=== PATIENT | male | born 1945 ===

== ENCOUNTER 2018-12-26 15:49 | Inpatient (IN) | payer MEDICARE, BC, MEDICAID ==
[~2018-12-26] VITALS: Ht 185.4 cm; Wt 96.4 kg
--- NOTE | 2018-12-26 16:07 | NUR ---
EKG 1601 LS
[2018-12-26] MEDS ORDERED: LORazepam 1 MG tablet PO ONE (17:10)
[2018-12-26 17:41] LABS: BASOPHILS % (AUTO) 0.5 % (0-1); EOSINOPHILS # (AUTO) 0.5 X10'3 (0-0.9); EOSINOPHILS % (AUTO) 5.8 % (0-6); HEMATOCRIT 38.7 % (42.0-52.0); HEMOGLOBIN 12.5 g/dl (14.0-17.9); LYMPHOCYTES # (AUTO) 1.1 X10'3 (1.1-4.8); LYMPHOCYTES % (AUTO) 14.1 % (21-51); MEAN CORPUSCULAR HGB CONC 32.4 g/dL (33.0-36.5); MEAN CORPUSCULAR VOLUME 92.7 FL (78-98); MEAN PLATELET VOLUME 8.2 FL (7.4-10.4); NEUTROPHILS # (AUTO) 5.4 X10'3 (1.8-7.7); NEUTROPHILS % (AUTO) 67.6 % (42-75); PLATELET COUNT 238 X10'3 (140-440); RED BLOOD COUNT 4.17 X10'6 (4.70-6.10); RED CELL DISTRIBUTION WIDTH 13.9 % (11.5-14.5)
[2018-12-26] MEDS ORDERED: haloperidol lactate 5mg/ml inj IM STA (17:54)
[2018-12-26] MEDS ORDERED: diphenhydrAMINE 50 mg/ml inj IM STA (17:54)
[2018-12-26] MEDS ORDERED: LORazepam 2 mg/ml vial IM STA (17:54)
[2018-12-26 17:58] LABS: ALANINE AMINOTRANSFERASE 23 U/L (12-78); ALBUMIN 2.7 G/DL (3.4-5.0); ALBUMIN/GLOBULIN RATIO 0.6 (1.1-1.5); ALKALINE PHOSPHATASE 119 IU/L (46-116); ANION GAP 8 (8-16); ASPARTATE AMINO TRANSFERASE 20 U/L (10-37); BILIRUBIN,TOTAL 0.4 MG/DL (0.1-1.0); BLOOD UREA NITROGEN 24 MG/DL (7-18); BUN/CREATININE RATIO 21.4 (5.4-32.0); CALCIUM 8.2 MG/DL (8.5-10.1); CHLORIDE 105 MMOL/L (99-107); CREATININE 1.12 MG/DL (0.60-1.10); GLUCOSE 104 MG/DL (70-104); POTASSIUM 3.9 MMOL/L (3.5-5.1); SODIUM 141 MMOL/L (135-145); TOTAL PROTEIN 7.1 G/DL (6.4-8.2); eGFR 64 ML/MIN
[2018-12-26 17:59] LABS: ETHANOL < 0.010 GM/DL (0.0-0.010)
[2018-12-26] MEDS ORDERED: HYDR-4383 PO (21:06)
[2018-12-26] MEDS ORDERED: MELA3TAB64 PO (21:06)
[2018-12-26] MEDS ORDERED: OMEP40CA13 PO (21:06)
[2018-12-26] MEDS ORDERED: POLY17PO10 PO (21:06)
[2018-12-26] MEDS ORDERED: MIRT15TA8 PO (21:06)
[2018-12-26 21:17] LABS: URINE AMPHETAMINE SCREEN NEGATIVE (Neg); URINE BARBITUATE SCREEN NEGATIVE (Neg); URINE BENZODIAZEPINES SCREEN NEGATIVE (Neg); URINE CANNABINOID SCREEN NEGATIVE (Neg); URINE COCAINE SCREEN NEGATIVE (Neg); URINE METHADONE SCREEN NEGATIVE (Neg); URINE OPIATE SCREEN POSITIVE (Neg); URINE PHENCYCLIDINE SCREEN NEGATIVE (Neg)
[2018-12-26] MEDS ORDERED: SOTA80TA73 PO (21:27)
[2018-12-26] MEDS ORDERED: ASPI-1265 PO (21:27)
[2018-12-26] MEDS ORDERED: LIDO700A32 (21:27)
[2018-12-26] MEDS ORDERED: VALP500V2 (21:27)
[2018-12-26] MEDS ORDERED: RISP0.5T74 PO (21:27)
[2018-12-26] MEDS ORDERED: FLO0.4C PO (21:27)
[2018-12-26] MEDS ORDERED: CALC500T11 PO (21:27)
[2018-12-26] MEDS ORDERED: DOCU100C41 PO (21:27)
[2018-12-26] MEDS ORDERED: ESCI20TA PO (21:27)
[2018-12-26] MEDS ORDERED: LACT10SO PO (21:27)
[2018-12-26] MEDS ORDERED: MULT-1121 (21:27)
[2018-12-26] MEDS ORDERED: DONE5TAB7 PO (21:27)
[2018-12-26] MEDS ORDERED: ATOR80TA PO (21:27)
[2018-12-26] MEDS ORDERED: BISA10SU60 RC (21:27)
[2018-12-26] MEDS ORDERED: MYL80T PO (21:27)
[2018-12-26] MEDS ORDERED: bisacodyl 10mg suppository rectal RC PRN (23:40)
[2018-12-27] MEDS ORDERED: VALP500V2 (00:03)
[2018-12-27] MEDS ORDERED: VALP500V2 PO (00:03)
[2018-12-27] MEDS ORDERED: VALP250S PO ×2 (00:12)
[2018-12-27] MEDS: mirtazapine 15mg tablet PO SCH ×2 (00:45→21:26)
[2018-12-27] MEDS: donepezil 5mg tablet PO SCH ×2 (00:45→21:27)
[2018-12-27] MEDS: risperiDONE 0.5mg tablet PO SCH ×3 (00:45→08:33)
[2018-12-27] MEDS: simethicone 80mg chew tab PO SCH ×3 (00:45→16:23)
[2018-12-27] MEDS: calcium carbonate 500mg chew tablet PO SCH ×3 (00:46→16:23)
[2018-12-27] MEDS: valproate sod 250mg/5ml UD oral syrup PO SCH ×3 (00:46→21:28)
--- NOTE | 2018-12-27 01:35 | NUR ---
CALLED PHARMACY FOR PT SOTALOL,THEY SAID THEY WILL SEND IT OVER.
[2018-12-27] MEDS: sotalol 80mg tablet PO SCH ×3 (01:44→08:29)
--- NOTE | 2018-12-27 06:30 | NUR ---
PACKET FAXED TO [facility]
--- NOTE | 2018-12-27 06:30 | NUR ---
ASSUMED CARE FROM XUAN PINA
--- NOTE | 2018-12-27 06:41 | NUR ---
PT NOTED TO BE SLEEPING, BLANKET AND PANTS ON FLOOR, COVERED PT UP AND REMOVED CLOTHING FROM FLOOR, PT ALLOWED V/S TO BE TAKEN
[2018-12-27] MEDS: pantoprazole 40mg Tablet.DR PO SCH ×2 (07:30→08:30)
--- NOTE | 2018-12-27 07:47 | NUR ---
SPOKE TO SUMMER AT V. [phone] FOR UPDATE STATES PT WAS NORMAL BEFORE SEPTEMBER AORTIC REPAIR NOW IS COMBATIVE/AGRESSIVE AND WILL NOTTAKE MEDS, ELOPEMENT ATTEMPTS WITH 1 ON 1 MONITORING,
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
--- NOTE | 2018-12-27 07:59 | NUR ---
DR. MAX AWARE THAT PT WILL NOT TAKE MEDICATION, AWARE OF PT'S AGRESSIVE COMBATIVE BEHAVIOR DURING ATTEMPT TO ADMINISTER MEDICATIONS.
[2018-12-27] MEDS: tamsulosin 0.4mg capsule PO SCH ×2 (08:00→08:30)
[2018-12-27] MEDS: citalopram 20mg tablet PO SCH (08:00)
[2018-12-27] MEDS: lactulose 20gm/30ml cup PO SCH ×2 (08:00→20:00)
[2018-12-27] MEDS: atorvastatin 20mg tablet PO SCH (08:00)
[2018-12-27] MEDS: aspirin 81mg tab.chew PO SCH (08:00)
--- NOTE | 2018-12-27 08:33 | NUR ---
able to give pt rispidone, betapace, and a few other am meds while feeding oatmeal.
--- NOTE | 2018-12-27 09:57 | NUR ---
PT MOVED FROM BED 08 TO BED 15 VIA RSALOMÓN BY ANOOP CHARGE NURSE, PT SLEEPING, NO S/S OF DISTRESS, DISCOMFORT OR AGITATION AT THIS TIME.
--- NOTE | 2018-12-27 10:27 | NUR ---
Asked to consult for this pt by the ER. They were wondering what to do w/ this pt. I explained that if there is not a medical reason to admit he can either return to [facility] (doubtful they will take him back) or call the to take him home. I attempted to explain to them that maybe [facility] might be a good idea and clinical social worker can help with that but Marianna the clinical documentation nurse did not think he needed clinical social worker. Will contact them anyway and ask them to take a look at the patient. Continue to monitor.
--- NOTE | 2018-12-27 10:51 | NUR ---
PT SLEEPING. WILL BE SENDING PACK OF INFO TO [facility]
--- NOTE | 2018-12-27 11:15 | NUR ---
HOSPITAL BED REQUESTED FOR PT. PT SLEEPING
--- NOTE | 2018-12-27 12:31 | NUR ---
ER CONTACTED [facility] REQUESTING THAT PT BE ACCEPTED TO [facility]. [facility] HAS NOT RECIEVED REFERRAL PACKET FROM [facility]. PT DISCUSSED WITH PSYCHIATRISTS. DOCUMENTATION STATES HE DOES NOT HAVE A MENTAL HEALTH HISTORY. SYMPTOMS BEGAN AFTER PT HAD A STROKE AND ARE DUE TO A MEDICAL CONDITION. PT IS NOT APPROPRIATE FOR ADMISSION TO PSYCHIATRIC FACIILITY BECAUSE WE CANNOT REASONABLY IMPROVE HIS CONDITION WITH MEDICATIONS, GROUPS/INDIVIDUAL THERAPY, OR MILIEU TREATMENT.
--- NOTE | 2018-12-27 14:28 | NUR ---
MENTAL HEALTH EMBOSSER OPERATOR AT BEDSIDE TO DO ASSESMENT.PT IS LOUD AND NOT TOO COOPERATIVE.
--- NOTE | 2018-12-27 15:10 | NUR ---
pt moved to room 14 ,now pt is working on his lunch tray.will cont to monitor.
--- NOTE | 2018-12-27 15:33 | NUR ---
pt off 5150 ,looking for facility placement for the pt,pt assisted to bed,pt consfused trying to get out of bed.
[2018-12-27] MEDS ORDERED: LORazepam 1 MG tablet PO ONE (15:45)
[2018-12-27] MEDS ORDERED: LORazepam 2 mg/ml vial IM ONE ×3 (15:50→23:05)
--- NOTE | 2018-12-27 16:05 | NUR ---
Rec'd call from ER regarding this pt who was brought here by Oswaldo. ER physician tells me that pt is gravely disabled, Oswaldo is refusing to take back and has end stage Parkinson's and cannot care for him. In fact prior to his surgery at [facility] he was the primary caregiver to her. ER doctor tells me that pt cannot care for himself. I explained that we cannot simply get a rehab for him to go to from the ER, this will probably involve a transfer out of the area. to contact hospitalist. Continue to monitor.
--- NOTE | 2018-12-27 16:27 | NUR ---
pt scheduled meds given to the pt explained the action but pt is consfused,pt trying to remove his pants off,want to leave the hospital,sitter outside the room observ 1:1.
--- NOTE | 2018-12-27 16:29 | NUR ---
ESVIN GOMES REQUESTED THAT WE CALL [facility] TO HAVE PT RETURNED TO THEIR FACILITY. [facility] WAS CALLED AND TOLD ANSWERING RN THAT PT'S 5150 HAS BEEN LIFTED BY [facility] AND THAT WE WOULD LIKE TO RETURN HIM TO THEIR FACILITY. FLY WORKER WAS INFORMED THAT SHE NEEDED TO SPEAK WITH HER "BOSS", BUT SHE WAS BUSY AT THE MOMENT AND THAT SHE WOULD CALL BACK STEFANIE. Addendum: 12/27/18 at 1638 by BOOKER SILVANA ALICEA FROM [facility] CALLED AND STATED THAT THE PT CAN NOT COME BACK TO THEIR FACILITY WITHOUT CLEARANCE FROM CEO EUGENE. DEANNE STATED THAT WE WILL BE GETTING A CALL FROM HER SHORTLY. STATED THAT DUE TO PT BITTING AND HITTING, THAT THEY CAN NOT TAKE CARE OF HIM BECAUSE THEY CAN NOT MEDICATE, AND THAT THE PT'S CAN NOT CARE FOR HIM DUE TO HER ILL HEALTH.
--- NOTE | 2018-12-27 16:56 | NUR ---
dagoberto from social service came as per her the amaurya has to take pt back as pt is medically clear no reason of keeping pt in hospital.
--- NOTE | 2018-12-27 16:56 | NUR ---
SPOKE WITH KANNAN FROM [facility]. STATED THAT SHE CONTACTED THE OMBUSMAN REGARDING PT'S RETURN TO [facility]. PER KANNAN, THE OMBUSMAN STATED THAT "HE IS THEIR PATIENT, NOTHING HAS CHANGED REGARDING PT'S CONDITION THEIR FORE THEY HAVE TO TAKE HIM BACK AND THAT IT IS HIS RIGHT TO RETURN TO [facility], IF THEY FEEL HE NEEDS A HIGHER LEVEL OF CARE IT IS THEIR RESPONSIBILITY TO HELP THE FAMILY FIND IT. IF [facility] REFUSES TO TAKE PT BACK, INFORM THEM THAT LISCENSING WILL BE NOTIFIED AND A REPORT WILL BE MADE." JOSHUA, ER DIRECTOR NOTIFIED.
--- NOTE | 2018-12-27 17:41 | NUR ---
DEANNE FROM [facility] CALLED BACK, STATES THAT YOUTH PASTOR IS STILL UNAVAILABLE. DEANNE WAS INFORMED THAT WE WOULD BE SENDING PT BACK TO [facility] AT WHICH TIME DEANNE STATES THAT THEY COULD NOT ACCEPTED PT BACK DUE TO HIS CONDITION AND NOT BEING ABLE TO CONTROL PT. AGAIN SHE WAS INFORMED THAT [facility] LIFTED THE 5150 DUE TO PTS CONDITION NOT BEING PSYCHOLOGICAL BUT MEDICAL DUE TO HIS PREVIOUS NOXIOUS INJURY. DEANNE STATED THAT THIS WOULD HAVE TO BE RUN BY THE YOUTH PASTOR. I REQUESTED A RETURN CALL FROM THE YOUTH PASTOR. JOSHUA WINTERS NOTIFIED AND KANNAN FROM [employer] FILE CLERK ALSO NOTIFIED.
--- NOTE | 2018-12-27 18:08 | NUR ---
pt appear sleeping,no distress noted ,will cont to monitor.
--- NOTE | 2018-12-27 19:27 | NUR ---
ALEAH LEONG -SISTER [phone]
--- NOTE | 2018-12-27 19:59 | NUR ---
pt appear sleeping,no distress noted ,waiting for [facility] to transport pt back to [facility].
--- NOTE | 2018-12-27 20:51 | NUR ---
PT AGITATED TRYING TO HIT AND COMBATAIVE INFORMED ESVIN MOROCHO SAID TO ORDER 1MG ATIVIAN IM ONCE FOR AGITATION ,WILL FOLLOW THE ORDERS.
--- NOTE | 2018-12-27 21:10 | NUR ---
ATIVIAN ADMIN TO THE PT PER MD ORDERS ,WILL ADMIN SCHED MED WHEN PT IS CALM PT IS NOT COOPERATIVE AT THIS TIME.
[2018-12-27] MEDS ORDERED: haloperidol lactate 5mg/ml inj IM ONE (22:05)
--- NOTE | 2018-12-27 22:57 | NUR ---
SITTER AT BEDSIDE.
[2018-12-28] MEDS: calcium carbonate 500mg chew tablet PO SCH ×3 (00:14→16:00)
[2018-12-28] MEDS: simethicone 80mg chew tab PO SCH ×3 (00:14→16:00)
--- NOTE | 2018-12-28 00:22 | NUR ---
PT DAMARIS MEDS ADMIN AFTER ADMINISTERING ATIVIAN INJ TO THE PT ,SITTER AT BEDSIDE FOR CLOSE OBERSERVATION PT REPEAT THAT HE WANT TO GO HOME TRYING CLIMB OVER THE BED,PT NOW RESTING IN BED.
--- NOTE | 2018-12-28 01:08 | NUR ---
PT RESTING IN BED AT THIS TIME ,NO DISTRESS NOTED.
--- NOTE | 2018-12-28 07:22 | NUR ---
Call placed to [facility]. Spoke with nurse who stated that there was no receiving MD as Dr. Ojeda refuses to take patient back. I requested that administration water restoration technician or NURSING STAFFING COORDINATOR to return my call STEFANIE.
[2018-12-28] MEDS ORDERED: LORazepam 2 mg/ml vial IM ONE ×2 (07:35→22:35)
[2018-12-28] MEDS: sotalol 80mg tablet PO SCH ×2 (08:00→20:00)
[2018-12-28] MEDS ORDERED: normal saline 1000ML IV soln IVB ONE (08:30)
--- NOTE | 2018-12-28 09:09 | NUR ---
Case management contacted at 0800 regarding disposition problem with patient. CM returned call stating there's nothing they can do at this time.
[2018-12-28] MEDS: aspirin 81mg tab.chew PO SCH (09:15)
[2018-12-28] MEDS: pantoprazole 40mg Tablet.DR PO SCH (09:16)
[2018-12-28] MEDS: risperiDONE 0.5mg tablet PO SCH ×2 (09:17→20:00)
[2018-12-28] MEDS: citalopram 20mg tablet PO SCH (09:17)
--- NOTE | 2018-12-28 09:23 | NUR ---
[employer] contacted, message left to return call. No answer at licensing. Called [facility], spoke with Summer shear scrapman nurse who states that there is not an accepting physician because Dr. Ojeda said he could not manage patient. Informed RN that if that was the case, he should be returned to [facility] for them to find appropriate level of care. Again, asked that [employer] CONSULTANT call me to discuss this situation.
[2018-12-28] MEDS: lactulose 20gm/30ml cup PO SCH ×2 (09:24→20:00)
[2018-12-28] MEDS: valproate sod 250mg/5ml UD oral syrup PO SCH ×2 (09:24→21:00)
[2018-12-28] MEDS: atorvastatin 20mg tablet PO SCH (09:25)
[2018-12-28] MEDS: tamsulosin 0.4mg capsule PO SCH (09:26)
--- NOTE | 2018-12-28 09:36 | NUR ---
able to give pt some medications administered with food/cream of wheat, on a two hour turn schedule, iv secured with coban and wrapped with hand towel, iv fluids infusing.
--- NOTE | 2018-12-28 10:01 | NUR ---
upon admit to overflow pt assessed and clean noted red area on buttock and upper sacrum, turned and placed on pillow, pt on a turn q 2 schedule.
--- NOTE | 2018-12-28 10:04 | NUR ---
Spoke with daughter and regarding status of patient. Daughter states that [facility] told her that "they ([facility]) are done with us and will no longer accept phone calls from [facility]".
--- NOTE | 2018-12-28 10:37 | NUR ---
STRAIGHT CATH FOR URINE BROUGHT TO LAB, CONDOM CATH APPLYED, MD INFORMED. FLUIDS COMPLETE, VITALS ASSESSED AND REPORTED TO , PT ON TURN Q 2 SCHEDULE WITH MOISTURE BARRIER APPLYED.
[2018-12-28 10:50] LABS: CLARITY,URINE CLEAR (Clear); COLOR,URINE YELLOW (Yellow); GLUCOSE, URINE NEGATIVE (Neg); KETONES,URINE TRACE mg/dl (Neg); LEUKOCYTE ESTERASE ,URINE NEGATIVE (Neg); NITRITES, URINE NEGATIVE (Neg); OCCULT BLOOD,URINE NEGATIVE (Neg); PH,URINE 7.5 (4.8-8.0); PROTEIN,URINE NEGATIVE (Neg)
--- NOTE | 2018-12-28 10:52 | NUR ---
polst/dnr brought in via family,dr. calderon aware, copy made and put on chart, original returned to family. unable to explaine why [facility] but verify that pt is a dnr at wishes of patient and spouse.
[2018-12-28 10:54] LABS: UA COLLECTION TYPE STRAIGHT CATH
[2018-12-28 11:38] LABS: BASOPHILS % (AUTO) 0.6 % (0-1); EOSINOPHILS # (AUTO) 0.3 X10'3 (0-0.9); EOSINOPHILS % (AUTO) 3.6 % (0-6); HEMATOCRIT 37.7 % (42.0-52.0); HEMOGLOBIN 12.6 g/dl (14.0-17.9); LYMPHOCYTES # (AUTO) 1.1 X10'3 (1.1-4.8); LYMPHOCYTES % (AUTO) 15.1 % (21-51); MEAN CORPUSCULAR HEMOGLOBIN 30.4 PG (27.0-31.0); MEAN CORPUSCULAR HGB CONC 33.4 g/dL (33.0-36.5); MEAN CORPUSCULAR VOLUME 91.1 FL (78-98); MEAN PLATELET VOLUME 8.1 FL (7.4-10.4); MONOCYTES # (AUTO) 0.8 X10'3 (0-0.9); MONOCYTES % (AUTO) 11.3 % (2-12); NEUTROPHILS % (AUTO) 69.4 % (42-75); PLATELET COUNT 254 X10'3 (140-440); RED BLOOD COUNT 4.14 X10'6 (4.70-6.10); RED CELL DISTRIBUTION WIDTH 13.7 % (11.5-14.5); WHITE BLOOD COUNT 7.3 X10'3 (4.5-11.0)
[2018-12-28 11:45] LABS: ALANINE AMINOTRANSFERASE 24 U/L (12-78); ALBUMIN 2.2 G/DL (3.4-5.0); ALBUMIN/GLOBULIN RATIO 0.6 (1.1-1.5); ALKALINE PHOSPHATASE 113 IU/L (46-116); ANION GAP 6 (8-16); ASPARTATE AMINO TRANSFERASE 31 U/L (10-37); BILIRUBIN,TOTAL 0.3 MG/DL (0.1-1.0); BLOOD UREA NITROGEN 15 MG/DL (7-18); BUN/CREATININE RATIO 16.5 (5.4-32.0); CALCIUM 7.7 MG/DL (8.5-10.1); CHLORIDE 109 MMOL/L (99-107); CREATININE 0.91 MG/DL (0.60-1.10); GLUCOSE 104 MG/DL (70-104); POTASSIUM 3.6 MMOL/L (3.5-5.1); SODIUM 142 MMOL/L (135-145); TOTAL CARBON DIOXIDE 27.4 MMOL/L (24-32); TOTAL PROTEIN 6.1 G/DL (6.4-8.2); eGFR 82 ML/MIN
[2018-12-28] MEDS ORDERED: LORazepam 2 mg/ml vial IV ONE (18:35)
[2018-12-28] MEDS ORDERED: quetiapine 100mg tablet PO ONE (18:35)
--- NOTE | 2018-12-28 19:30 | NUR ---
PT UNABLE TO TAKE PO MEDS AT THIS TIME. PT IS TOO CONFUSED TO SWALLOW SAFELY.
--- NOTE | 2018-12-28 19:35 | NUR ---
PT CONTINUES TO YELL OUT, ASKING FOR VARIOUS PEOPLE THAT ARE NOT PRESENT. WHEN ASKED WHAT'S WRONG, PT CANNOT ANSWER CLEARLY.
--- NOTE | 2018-12-28 19:49 | NUR ---
PT WAS ABLE TO TAKE SEROQUEL WITH FOOD.
[2018-12-28] MEDS: donepezil 5mg tablet PO SCH (21:00)
[2018-12-28] MEDS: mirtazapine 15mg tablet PO SCH (21:00)
--- NOTE | 2018-12-28 22:20 | NUR ---
pt too confused to take po meds.
[2018-12-28] MEDS ORDERED: LORazepam 2 mg/ml vial IV PRN (22:25)
--- NOTE | 2018-12-28 22:42 | NUR ---
Patient agitated and yelling out names. Patient is confused and not making sense. RN to give IM Ativan to assist patient to relax and sleep. Continue to monitor.
--- NOTE | 2018-12-28 22:56 | NUR ---
IV removed by pt, cannula intact. RN informed.
--- NOTE | 2018-12-28 22:59 | NUR ---
Pt repositioned, warm blankets given for comfort.
--- NOTE | 2018-12-28 23:20 | NUR ---
Patient is sleeping comfortably. No distress observed.
--- NOTE | 2018-12-28 23:50 | NUR ---
Patient is having periods of apnea. Pt's pulse ox at 91% on RA. RN and tech placed patient on 2 liters via NC. Will recheck oxygen sat in 10 minutes.
--- NOTE | 2018-12-29 02:08 | NUR ---
Patient sleeping supine with his mouth wide open. Patient has his nasal canula in place and continues with 2 liters of oxygen. Patient continues with short periods of apnea but is maintaining his oxygen level at 92% and above. Continue to monitor.
--- NOTE | 2018-12-29 04:00 | NUR ---
Patient sleeping on left lateral side. Patient continues with his nasal canula with 2 liters of oxygen. Continue to monitor.
[2018-12-29] MEDS: calcium carbonate 500mg chew tablet PO SCH ×3 (08:00→16:27)
[2018-12-29] MEDS: lactulose 20gm/30ml cup PO SCH ×2 (08:00→20:00)
[2018-12-29] MEDS: simethicone 80mg chew tab PO SCH ×3 (09:15→16:49)
[2018-12-29] MEDS: tamsulosin 0.4mg capsule PO SCH (09:20)
[2018-12-29] MEDS: atorvastatin 20mg tablet PO SCH (09:20)
[2018-12-29] MEDS: sotalol 80mg tablet PO SCH ×2 (09:21→20:28)
[2018-12-29] MEDS: valproate sod 250mg/5ml UD oral syrup PO SCH ×2 (09:21→20:27)
[2018-12-29] MEDS: risperiDONE 0.5mg tablet PO SCH ×2 (09:22→20:27)
[2018-12-29] MEDS: citalopram 20mg tablet PO SCH (09:22)
[2018-12-29] MEDS: aspirin 81mg tab.chew PO SCH (09:22)
--- NOTE | 2018-12-29 09:52 | NUR ---
Patient combative with care, turned to left side @ 0800, chux replaced, sheets smoothed. Patient removed condom cath, no incontinence. offered fluids, patient refused. Assisted with breakfast while administering medications. Patient took small amount of oatmeal, refused fluids. Unable to administer full amount of valporic Acid due to patient refusal. Removed Oxygen as NC causing patient discomfort and SaO2 stable.
[2018-12-29] MEDS ORDERED: haloperidol lactate 5mg/ml inj IM ONE (13:35)
--- NOTE | 2018-12-29 13:35 | NUR ---
Pt becoming agitated, continuously trying to climb out of bed. Spoke to ED head charger about giving pt medication for sedation, who spoke to EDMD.
[2018-12-29] MEDS ORDERED: normal saline 500ml IV soln 1,000 ML IV ONE (15:00)
[2018-12-29] MEDS: normal saline 500ml IV soln 1,000 ML IV SCH (15:51)
--- NOTE | 2018-12-29 15:51 | NUR ---
Patient continues to be agitated following administration of Haldol. Attempts to hit, kick, bite staff. Pleaced in behavioral restraints bilateral wrists. Physician notified, Ativan ordered for agitation.
[2018-12-29] MEDS ORDERED: LORazepam 2 mg/ml vial IM ONE (15:55)
--- NOTE | 2018-12-29 16:42 | NUR ---
Patient is calmer, but continues to yell out and attempt to get out of bed
--- NOTE | 2018-12-29 16:58 | NUR ---
Restraints removes @ 1645, patient is calmer, quieter. Is not currently attempting to pull at IV.
--- NOTE | 2018-12-29 17:57 | NUR ---
0540 patient fell asleep, resting comfortably.
--- NOTE | 2018-12-29 18:30 | NUR ---
This patient is moving around in bed frequently. He is confussed, his speech is clear, eye contact is poor. Patient presents as labile. Calming measures are used. The patient is informed that he is in a safe place. IV fluids are now infused. The saline lock is left in and flushed by this RN.
--- NOTE | 2018-12-29 19:23 | NUR ---
This patient is awake, he exhibits confussion. His IV fluids are done. The saline lock is flushed. The [facility] is providing hygenical care for the patient. He is cooperative at this time.
--- NOTE | 2018-12-29 19:37 | NUR ---
Attempted to swab pt's mouth with green swab, but pt would not let me.
[2018-12-29] MEDS ORDERED: diphenhydrAMINE 50 mg/ml inj IV ONE (19:55)
[2018-12-29] MEDS ORDERED: LORazepam 2 mg/ml vial IV ONE (19:55)
[2018-12-29] MEDS: mirtazapine 15mg tablet PO SCH (20:27)
[2018-12-29] MEDS: donepezil 5mg tablet PO SCH (20:28)
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
[2018-12-29] MEDS: haloperidol lactate 5mg/ml inj IM ONE ×2 (21:00→21:42)
--- NOTE | 2018-12-29 21:19 | NUR ---
Pt changed into fresh gown, jammie care given. Small abrasion on t
--- NOTE | 2018-12-29 21:20 | NUR ---
Pt changed into fresh gown, jammie care given. Small abrasion on pt's buttock. Silicone cream applied to area after jammie care given. Pt given warm blankets for comfort. RN informed of small abrasion.
--- NOTE | 2018-12-29 22:20 | NUR ---
The patient has been sleeping since sedation. He is being turned and reqositioned Q2hr's. His saline lock was left in place, flushed and locked. Patient snores and has sleep apnea. 02 is supplimented at 2LPM while he sleeps. SaO2 has been in the high 90's despite obstructive sleep apnea. Patients oral pharyngeal region has been suctioned of phlege on three occasions. Patient remains sleeping. Patient is under close observation from the nursing station. Frequent rounding for patient safety. Patients bed is in mid fowlers position as a measure to help prevent any potential aspiration risk.
[2018-12-30] MEDS: normal saline 500ml IV soln 1,000 ML IV SCH (01:00)
[2018-12-30] MEDS ORDERED: LORazepam 2 mg/ml vial IM PRN (02:50)
[2018-12-30] MEDS ORDERED: haloperidol lactate 5mg/ml inj IM PRN (02:50)
[2018-12-30] MEDS ORDERED: diphenhydrAMINE 50 mg/ml inj IM PRN (02:50)
--- NOTE | 2018-12-30 07:00 | NUR ---
Received pt asleep in bed, resting quietly without complaints.
[2018-12-30] MEDS: pantoprazole 40mg Tablet.DR PO SCH (07:30)
[2018-12-30] MEDS ORDERED: risperiDONE 0.5mg tablet PO SCH (08:00)
[2018-12-30] MEDS: atorvastatin 20mg tablet PO SCH (08:00)
[2018-12-30] MEDS: aspirin 81mg tab.chew PO SCH (08:00)
[2018-12-30] MEDS: simethicone 80mg chew tab PO SCH ×4 (08:00→20:40)
[2018-12-30] MEDS: sotalol 80mg tablet PO SCH ×2 (08:00→20:40)
[2018-12-30] MEDS: valproate sod 250mg/5ml UD oral syrup PO SCH ×2 (08:00→20:41)
[2018-12-30] MEDS: calcium carbonate 500mg chew tablet PO SCH ×4 (08:00→20:40)
[2018-12-30] MEDS: lactulose 20gm/30ml cup PO SCH ×2 (08:00→19:30)
[2018-12-30] MEDS ORDERED: ondansetron/PF 4mg/2ml inj IV PRN (08:20)
[2018-12-30] MEDS ORDERED: mag hydrox/Alum hydrox/simeth 30ml oral suspension PO PRN (08:20)
[2018-12-30] MEDS ORDERED: magnesium hydroxide 30ml (MOM) UD suspension PO PRN (08:20)
[2018-12-30] MEDS ORDERED: acetaminophen 325mg tablet PO PRN (08:20)
[2018-12-30] MEDS: haloperidol 1mg tablet PO SCH ×2 (08:25→20:41)
--- NOTE | 2018-12-30 09:00 | NUR ---
IV discontinued per MD order. Admitting orders written for serotonin syndrome by Dr. Mclaughlin who came by to assess patient. Patient unarrousable by Dr. Mclaughlin and nurse. Unable to wake patient to take his medication and Dr. Mclaughlin said that was ok for now. Pt continues to sleep without distress with HOB elevated and O2 at 2L via nasal cannula.
--- NOTE | 2018-12-30 09:30 | NUR ---
Kierra HOYT from case management called to let us know that she had contacted [facility] to have Oswaldo reynoldsmit patient and process had begun to have medicare alf care added to coverage.
--- NOTE | 2018-12-30 11:00 | NUR ---
Pt remains sleeping without distress. O2 remains at 2L via nasal cannula and HOB elevated.
[2018-12-30] MEDS: normal saline 1000ml 1,000 ML IV SCH ×2 (11:05→19:27)
--- NOTE | 2018-12-30 11:42 | NUR ---
Laura, from Case Management returned page and stated she had just spoken to nursing supervisor cutting department who stated he was moving the patient to an inpatient bed as soon as gets a bed.
--- NOTE | 2018-12-30 12:52 | NUR ---
Contacted Wale, nursing telephone operators supervisor who stated that he will have a hospital bed for the patient in about an hour.
[2018-12-30 15:00] VITALS: BP 163/49
[2018-12-30 19:00] VITALS: BP 148/59
[2018-12-30] MEDS: donepezil 5mg tablet PO SCH (20:40)
[2018-12-30] MEDS: heparin, porcine 5000 units/ml vial SQ SCH (20:42)
[2018-12-30 22:00] VITALS: BP 159/57
--- NOTE | 2018-12-30 22:04 | NUR ---
Patient is becoming agitated and verbally abusive to staff, we had to put soft restraints on to keep him from becoming combative. I have just given him Ativan and Haldol. I will monitor his condition.
--- NOTE | 2018-12-31 03:22 | NUR ---
Patient sleeping comfortably, told unit tech not to wake for 0200 vitals.
[2018-12-31] MEDS: normal saline 1000ml 1,000 ML IV SCH ×3 (04:40→23:39)
[2018-12-31 05:55] LABS: BASOPHILS % (AUTO) 0.5 % (0-1); EOSINOPHILS # (AUTO) 0.6 X10'3 (0-0.9); EOSINOPHILS % (AUTO) 6.4 % (0-6); HEMATOCRIT 38.7 % (42.0-52.0); HEMOGLOBIN 13.1 g/dl (14.0-17.9); LYMPHOCYTES # (AUTO) 1.5 X10'3 (1.1-4.8); LYMPHOCYTES % (AUTO) 17.6 % (21-51); MEAN CORPUSCULAR HEMOGLOBIN 30.4 PG (27.0-31.0); MEAN CORPUSCULAR HGB CONC 33.8 g/dL (33.0-36.5); MEAN CORPUSCULAR VOLUME 89.9 FL (78-98); MEAN PLATELET VOLUME 7.9 FL (7.4-10.4); MONOCYTES % (AUTO) 11.1 % (2-12); NEUTROPHILS # (AUTO) 5.6 X10'3 (1.8-7.7); NEUTROPHILS % (AUTO) 64.4 % (42-75); PLATELET COUNT 275 X10'3 (140-440); RED CELL DISTRIBUTION WIDTH 13.2 % (11.5-14.5); WHITE BLOOD COUNT 8.7 X10'3 (4.5-11.0)
[2018-12-31 06:00] VITALS: BP 142/45
[2018-12-31 06:15] LABS: ALBUMIN 2.2 G/DL (3.4-5.0); ANION GAP 7 (8-16); BLOOD UREA NITROGEN 10 MG/DL (7-18); BUN/CREATININE RATIO 13.2 (5.4-32.0); CALCIUM 8.3 MG/DL (8.5-10.1); CHLORIDE 108 MMOL/L (99-107); CREATININE 0.76 MG/DL (0.60-1.10); GLUCOSE 86 MG/DL (70-104); POTASSIUM 3.9 MMOL/L (3.5-5.1); SODIUM 141 MMOL/L (135-145); TOTAL CARBON DIOXIDE 26.1 MMOL/L (24-32); eGFR > 90 ML/MIN
--- NOTE | 2018-12-31 06:18 | NUR ---
Problems reprioritized. Patient report given, questions answered & plan of care reviewed with SILVANA Serraot.
--- NOTE | 2018-12-31 06:38 | NUR ---
Patient in room PCU 3025. I have received report from SLIVANA Holland and had the opportunity to ask questions and assume patient care. Patient awake in bed and talking. Sitter bedside as well. Will continue to monitor.
[2018-12-31] MEDS: aspirin 81mg tab.chew PO SCH (08:21)
[2018-12-31] MEDS: tamsulosin 0.4mg capsule PO SCH (08:21)
[2018-12-31] MEDS: pantoprazole 40mg Tablet.DR PO SCH (08:21)
[2018-12-31] MEDS: valproate sod 250mg/5ml UD oral syrup PO SCH ×2 (08:21→19:53)
[2018-12-31] MEDS: calcium carbonate 500mg chew tablet PO SCH ×3 (08:21→19:51)
[2018-12-31] MEDS: simethicone 80mg chew tab PO SCH ×3 (08:22→19:51)
[2018-12-31] MEDS: sotalol 80mg tablet PO SCH ×2 (08:22→19:52)
[2018-12-31] MEDS: atorvastatin 20mg tablet PO SCH (08:22)
[2018-12-31] MEDS: heparin, porcine 5000 units/ml vial SQ SCH ×2 (08:23→19:53)
[2018-12-31] MEDS: haloperidol 1mg tablet PO SCH ×2 (08:57→19:49)
--- NOTE | 2018-12-31 09:30 | NUR ---
Received from Dr. Mclaughlin to continue Lactulose and have an ammonia lab draw, One time order for Ativan IV 1mg for CT procedure.
[2018-12-31] MEDS ORDERED: LORazepam 2 mg/ml vial IV ONE (09:40)
[2018-12-31] MEDS: lactulose 20gm/30ml cup PO SCH ×2 (10:44→19:57)
[2018-12-31] MEDS ORDERED: HYDR25TA4 PO (10:46)
[2018-12-31] MEDS ORDERED: DULO30CA52 PO (10:48)
[2018-12-31] MEDS ORDERED: DULO60CA65 PO (10:48)
[2018-12-31] MEDS ORDERED: LISI10TA4 PO (10:49)
[2018-12-31 11:00] VITALS: BP 143/43
--- NOTE | 2018-12-31 13:32 | NUR ---
PAGER ID: [phone] MESSAGE: [id number] Rios Izquierdo: Patient had CT done, tech only able to get a few images d/t pt condition, not able to admin additional meds during scan. Results pending. Thanks Nara [phone]
[2018-12-31 15:00] VITALS: BP 122/44
--- NOTE | 2018-12-31 15:37 | NUR ---
PAGER ID: [phone] MESSAGE: [id number] Rios Urrutia: Patient does not have an active renewable order for restraints, patient still impulsive/combative, can you order please? thanks Nara [phone]
--- NOTE | 2018-12-31 16:20 | NUR ---
PAGER ID: [phone] MESSAGE: [id number] Rios Izquierdo: VERONICA Informed by telescope maintenance pt has been in and out of junctional rhythm, HR in 40's nonsustained. Thanks Nara [phone]
--- NOTE | 2018-12-31 18:44 | NUR ---
[place] documentation: I have reviewed and agree with all interventions, assessments performed and documented by SILVANA Bains. [place] Medication Administration: For this medication-pass time frame, all medication were reviewed, dispensed, administered and documented per hospital policy by SILVANA Bains.
--- NOTE | 2018-12-31 18:44 | NUR ---
Problems reprioritized. Patient report given, questions answered & plan of care reviewed with SILVANA Gibbs. Patient stable at transfer of care.
[2018-12-31 19:10] VITALS: BP 126/57
[2018-12-31] MEDS: LORazepam 1 MG tablet PO PRN (19:49)
[2018-12-31] MEDS: donepezil 5mg tablet PO SCH (19:52)
[2018-12-31 23:00] VITALS: BP 144/60
[2019-01-01 03:00] VITALS: BP 134/38
[2019-01-01 05:49] LABS: ALBUMIN 2.1 G/DL (3.4-5.0); ANION GAP 8 (8-16); BLOOD UREA NITROGEN 9 MG/DL (7-18); BUN/CREATININE RATIO 11.5 (5.4-32.0); CALCIUM 8.3 MG/DL (8.5-10.1); CHLORIDE 109 MMOL/L (99-107); CREATININE 0.78 MG/DL (0.60-1.10); GLUCOSE 87 MG/DL (70-104); SODIUM 143 MMOL/L (135-145); TOTAL CARBON DIOXIDE 26.4 MMOL/L (24-32); eGFR > 90 ML/MIN
[2019-01-01 06:08] LABS: BASOPHILS % (AUTO) 0.7 % (0-1); EOSINOPHILS # (AUTO) 0.4 X10'3 (0-0.9); EOSINOPHILS % (AUTO) 6.5 % (0-6); HEMATOCRIT 36.6 % (42.0-52.0); HEMOGLOBIN 12.3 g/dl (14.0-17.9); LYMPHOCYTES # (AUTO) 1.4 X10'3 (1.1-4.8); LYMPHOCYTES % (AUTO) 21.1 % (21-51); MEAN CORPUSCULAR HEMOGLOBIN 30.4 PG (27.0-31.0); MEAN CORPUSCULAR HGB CONC 33.7 g/dL (33.0-36.5); MEAN CORPUSCULAR VOLUME 90.3 FL (78-98); MEAN PLATELET VOLUME 7.8 FL (7.4-10.4); MONOCYTES # (AUTO) 0.8 X10'3 (0-0.9); NEUTROPHILS % (AUTO) 59.7 % (42-75); PLATELET COUNT 298 X10'3 (140-440); RED BLOOD COUNT 4.05 X10'6 (4.70-6.10); RED CELL DISTRIBUTION WIDTH 13.6 % (11.5-14.5); WHITE BLOOD COUNT 6.6 X10'3 (4.5-11.0)
--- NOTE | 2019-01-01 06:35 | NUR ---
Problems reprioritized. Patient report given, questions answered & plan of care reviewed with CASSANDRA. Addendum: 01/01/19 at 0636 by Axel Castillo RN Amended: Links added.
--- NOTE | 2019-01-01 06:40 | NUR ---
Patient in room PCU 3025. I have received report from Sai PINA and had the opportunity to ask questions and assume patient care. Patient awake in bed with soft restraints on bilateral wrists. Sitter bedside. No immediate needs at this time. Will continue to monitor.
[2019-01-01 07:00] VITALS: BP 126/57
[2019-01-01] MEDS: pantoprazole 40mg Tablet.DR PO SCH (07:30)
[2019-01-01] MEDS: calcium carbonate 500mg chew tablet PO SCH ×4 (08:00→21:53)
[2019-01-01] MEDS: lactulose 20gm/30ml cup PO SCH ×3 (08:00→21:59)
[2019-01-01] MEDS: haloperidol 1mg tablet PO SCH ×3 (08:00→21:53)
[2019-01-01] MEDS: sotalol 80mg tablet PO SCH ×3 (08:00→21:59)
[2019-01-01] MEDS: simethicone 80mg chew tab PO SCH ×3 (08:00→16:00)
[2019-01-01] MEDS: valproate sod 250mg/5ml UD oral syrup PO SCH ×2 (09:02→21:50)
[2019-01-01] MEDS: tamsulosin 0.4mg capsule PO SCH (09:03)
[2019-01-01] MEDS: aspirin 81mg tab.chew PO SCH (09:03)
[2019-01-01] MEDS: lisinopril 2.5mg tablet PO SCH (09:04)
[2019-01-01] MEDS: atorvastatin 20mg tablet PO SCH (09:05)
[2019-01-01] MEDS: heparin, porcine 5000 units/ml vial SQ SCH ×2 (09:06→21:54)
--- NOTE | 2019-01-01 10:17 | NUR ---
Attempted to give AM medications including lactulose x3 times in separate occasions, pt is becoming increasingly agitated and refusing to take medications.
--- NOTE | 2019-01-01 10:23 | NUR ---
PAGER ID: [phone] MESSAGE: [id number] Rios Izquierdo: Pt is awake and becoming more agitated, refused all AM meds, Can we get an PRN IV Ativan order? Thanks Nara [phone]
[2019-01-01] MEDS: normal saline 1000ml 1,000 ML IV SCH ×2 (10:25→18:43)
[2019-01-01 11:00] VITALS: BP 122/51
--- NOTE | 2019-01-01 13:29 | NUR ---
PAGER ID: [phone] MESSAGE: [id number]: Rios Izquierdo: Pt is c/o back pain no prn pain med orders, FYI pt is still impulsive, restrain order expires @1600. Please Advise. Thanks Nara [phone].
[2019-01-01 15:00] VITALS: BP 121/58
--- NOTE | 2019-01-01 18:39 | NUR ---
Problems reprioritized. Patient report given, questions answered & plan of care reviewed with Roc PINA. Patient stable at transfer of care.
[2019-01-01] MEDS: LORazepam 1 MG tablet PO PRN (18:48)
[2019-01-01 19:00] VITALS: BP 124/63
[2019-01-01] MEDS: donepezil 5mg tablet PO SCH (21:53)
[2019-01-01 23:00] VITALS: BP 124/63
[2019-01-02] MEDS: simethicone 80mg chew tab PO SCH ×4 (00:25→23:38)
[2019-01-02 03:00] VITALS: BP 148/54
[2019-01-02] MEDS: normal saline 1000ml 1,000 ML IV SCH ×2 (04:22→16:30)
[2019-01-02 05:28] LABS: BASOPHILS % (AUTO) 0.6 % (0-1); EOSINOPHILS # (AUTO) 0.4 X10'3 (0-0.9); EOSINOPHILS % (AUTO) 6.5 % (0-6); HEMATOCRIT 36.4 % (42.0-52.0); HEMOGLOBIN 12.3 g/dl (14.0-17.9); LYMPHOCYTES # (AUTO) 1.4 X10'3 (1.1-4.8); LYMPHOCYTES % (AUTO) 20.9 % (21-51); MEAN CORPUSCULAR HEMOGLOBIN 30.3 PG (27.0-31.0); MEAN CORPUSCULAR HGB CONC 33.8 g/dL (33.0-36.5); MEAN CORPUSCULAR VOLUME 89.5 FL (78-98); MEAN PLATELET VOLUME 7.8 FL (7.4-10.4); MONOCYTES # (AUTO) 0.8 X10'3 (0-0.9); MONOCYTES % (AUTO) 12.5 % (2-12); NEUTROPHILS # (AUTO) 3.8 X10'3 (1.8-7.7); NEUTROPHILS % (AUTO) 59.5 % (42-75); PLATELET COUNT 296 X10'3 (140-440); RED BLOOD COUNT 4.06 X10'6 (4.70-6.10); RED CELL DISTRIBUTION WIDTH 13.5 % (11.5-14.5); WHITE BLOOD COUNT 6.5 X10'3 (4.5-11.0)
[2019-01-02 05:36] LABS: ALBUMIN 2.2 G/DL (3.4-5.0); ANION GAP 5 (8-16); BLOOD UREA NITROGEN 10 MG/DL (7-18); BUN/CREATININE RATIO 13.9 (5.4-32.0); CALCIUM 8.2 MG/DL (8.5-10.1); CHLORIDE 111 MMOL/L (99-107); CREATININE 0.72 MG/DL (0.60-1.10); GLUCOSE 93 MG/DL (70-104); POTASSIUM 3.6 MMOL/L (3.5-5.1); SODIUM 142 MMOL/L (135-145); TOTAL CARBON DIOXIDE 26.5 MMOL/L (24-32); eGFR > 90 ML/MIN
[2019-01-02 06:00] VITALS: BP 180/48
--- NOTE | 2019-01-02 06:17 | NUR ---
Patient in room PCU 3025. I have received report from Roc PINA and had the opportunity to ask questions and assume patient care. Patient is in bed resting with sitter in the room, all needs met at this time.
--- NOTE | 2019-01-02 07:09 | NUR ---
PAGER ID: [phone] MESSAGE: [id number]: Rios Izquierdo: VERONICA AM BP 180/48: Refused yesterdays AM scheduled BP meds will attempt to give scheduled AM BP meds today. Thanks Nara [phone]
[2019-01-02] MEDS: haloperidol 1mg tablet PO SCH ×2 (07:39→20:38)
[2019-01-02] MEDS: pantoprazole 40mg Tablet.DR PO SCH (07:39)
[2019-01-02] MEDS: calcium carbonate 500mg chew tablet PO SCH ×4 (07:39→20:38)
[2019-01-02] MEDS: sotalol 80mg tablet PO SCH ×2 (07:39→20:40)
[2019-01-02] MEDS: lisinopril 2.5mg tablet PO SCH (07:39)
[2019-01-02] MEDS: tamsulosin 0.4mg capsule PO SCH (07:39)
[2019-01-02] MEDS: aspirin 81mg tab.chew PO SCH (07:40)
[2019-01-02] MEDS: valproate sod 250mg/5ml UD oral syrup PO SCH ×2 (07:40→20:37)
[2019-01-02] MEDS: atorvastatin 20mg tablet PO SCH (07:40)
[2019-01-02] MEDS: heparin, porcine 5000 units/ml vial SQ SCH ×2 (07:41→20:41)
[2019-01-02] MEDS: lactulose 20gm/30ml cup PO SCH ×2 (07:42→20:37)
--- NOTE | 2019-01-02 09:42 | NUR ---
received orders from Dr. Mclaughlin for PT eval and treat, Swallow eval, and CXR d/t pt having a new cough and to r/o aspiration.
[2019-01-02 11:00] VITALS: BP 135/55
--- NOTE | 2019-01-02 11:09 | NUR ---
Discussed with Dr. Mclaughlin that patient is less impulsive and more docile, advised to attempt trial period without restraints with sitter but can renew restraints if necessary.
--- NOTE | 2019-01-02 14:42 | NUR ---
PAGER ID: [phone] MESSAGE: [id number]: Rios Izquierdo: VERONICA Pt become agitated/anxious again, re-initiated restraints Thanks Nara [phone]
--- NOTE | 2019-01-02 14:57 | NUR ---
Initial: Pt admit w/ toxic encephalopathy, hepatic encephalopathy getting lactulose, and hx dementia per MD note. AOx1. PO increased to 75-100% pureed/heart healthy diet per TRANSFER STATION OPERATOR meeting needs. [facility] 01/01. Will continue to monitor. Rec: 1. continue pureed/thin/heart healthy diet per TRANSFER STATION OPERATOR/MD 2. monitor for ONS needs if PO declines 3. wt per rx Addendum: 01/02/19 at [address] Amended: Links added.
[2019-01-02 15:00] VITALS: BP 142/52
--- NOTE | 2019-01-02 16:53 | NUR ---
PAGER ID: [phone] MESSAGE: [id number] Rios Izquierdo Pt c/o 7out of 10 back pain, no prn pain med order. Thank you, Yvette#[phone]
[2019-01-02 18:00] VITALS: BP 110/51
--- NOTE | 2019-01-02 18:08 | NUR ---
Problems reprioritized. Patient report given, questions answered & plan of care reviewed with Roc PINA.
[2019-01-02] MEDS: LORazepam 1 MG tablet PO PRN (20:37)
[2019-01-02] MEDS: donepezil 5mg tablet PO SCH (20:38)
[2019-01-02] MEDS: HYDROcodone/acetaminophen 10/325mg tab PO PRN (20:39)
[2019-01-02 23:00] VITALS: BP 138/50
[2019-01-03 02:00] VITALS: BP 173/50
[2019-01-03] MEDS: normal saline 1000ml 1,000 ML IV SCH ×3 (02:17→16:20)
[2019-01-03] MEDS: HYDROcodone/acetaminophen 10/325mg tab PO PRN ×2 (05:43→15:58)
[2019-01-03 06:00] VITALS: BP 136/49
[2019-01-03 06:15] LABS: BASOPHILS % (AUTO) 0.7 % (0-1); EOSINOPHILS # (AUTO) 0.3 X10'3 (0-0.9); EOSINOPHILS % (AUTO) 4.5 % (0-6); HEMATOCRIT 36.1 % (42.0-52.0); HEMOGLOBIN 12.3 g/dl (14.0-17.9); LYMPHOCYTES # (AUTO) 1.3 X10'3 (1.1-4.8); LYMPHOCYTES % (AUTO) 17.3 % (21-51); MEAN CORPUSCULAR HEMOGLOBIN 30.5 PG (27.0-31.0); MEAN CORPUSCULAR HGB CONC 34.2 g/dL (33.0-36.5); MEAN CORPUSCULAR VOLUME 89.4 FL (78-98); MEAN PLATELET VOLUME 7.4 FL (7.4-10.4); MONOCYTES # (AUTO) 0.8 X10'3 (0-0.9); MONOCYTES % (AUTO) 11.3 % (2-12); NEUTROPHILS # (AUTO) 4.9 X10'3 (1.8-7.7); NEUTROPHILS % (AUTO) 66.2 % (42-75); PLATELET COUNT 300 X10'3 (140-440); RED BLOOD COUNT 4.03 X10'6 (4.70-6.10); RED CELL DISTRIBUTION WIDTH 13.6 % (11.5-14.5); WHITE BLOOD COUNT 7.4 X10'3 (4.5-11.0)
--- NOTE | 2019-01-03 06:43 | NUR ---
Patient in room PCU 3025. I have received report from Roc PINA and had the opportunity to ask questions and assume patient care.
[2019-01-03 06:51] LABS: ALBUMIN 2.1 G/DL (3.4-5.0); ANION GAP 8 (8-16); BLOOD UREA NITROGEN 5 MG/DL (7-18); BUN/CREATININE RATIO 6.8 (5.4-32.0); CALCIUM 8.1 MG/DL (8.5-10.1); CHLORIDE 110 MMOL/L (99-107); CREATININE 0.74 MG/DL (0.60-1.10); GLUCOSE 84 MG/DL (70-104); POTASSIUM 3.4 MMOL/L (3.5-5.1); SODIUM 143 MMOL/L (135-145); eGFR > 90 ML/MIN
--- NOTE | 2019-01-03 07:00 | NUR ---
Pt resting and not aggressive. With MD's ok, we trialed pt without restraints and pt is has done well. Restraint order will not be renewed. Will continue to monitor.
[2019-01-03] MEDS: lactulose 20gm/30ml cup PO SCH ×2 (08:57→20:24)
[2019-01-03] MEDS: valproate sod 250mg/5ml UD oral syrup PO SCH ×2 (08:57→20:27)
[2019-01-03] MEDS: tamsulosin 0.4mg capsule PO SCH (08:58)
[2019-01-03] MEDS: simethicone 80mg chew tab PO SCH ×2 (08:58→15:58)
[2019-01-03] MEDS: pantoprazole 40mg Tablet.DR PO SCH (08:59)
[2019-01-03] MEDS: atorvastatin 20mg tablet PO SCH (08:59)
[2019-01-03] MEDS: haloperidol 1mg tablet PO SCH ×2 (09:02→20:46)
[2019-01-03] MEDS: calcium carbonate 500mg chew tablet PO SCH ×3 (09:02→20:26)
[2019-01-03] MEDS: aspirin 81mg tab.chew PO SCH (09:02)
[2019-01-03] MEDS: sotalol 80mg tablet PO SCH ×2 (09:03→20:25)
[2019-01-03] MEDS: lisinopril 2.5mg tablet PO SCH (09:07)
[2019-01-03] MEDS: heparin, porcine 5000 units/ml vial SQ SCH ×2 (09:08→20:28)
[2019-01-03] MEDS: amox tr/potassium clavulanate 875/125mg TAB PO SCH ×2 (10:01→20:26)
[2019-01-03 11:00] VITALS: BP 143/53
[2019-01-03 15:00] VITALS: BP 168/64
[2019-01-03 18:00] VITALS: BP 183/61
--- NOTE | 2019-01-03 18:42 | NUR ---
Problems reprioritized. Patient report given, questions answered & plan of care reviewed with Jennifer PINA.
--- NOTE | 2019-01-03 18:59 | NUR ---
Patient in room U 3025. I have received report from Paul Best"s and had the opportunity to ask questions and assume patient care. Addendum: 01/03/19 at 1900 by Jennifer Villafuerte RN Amended: Links added.
--- NOTE | 2019-01-03 19:50 | NUR ---
Problems reprioritized. Patient report given, questions answered & plan of care reviewed with Collins Best. Addendum: 01/03/19 at 1950 by Jennifer Villafuerte RN Amended: Links added.
--- NOTE | 2019-01-03 19:51 | NUR ---
Patient in room BRYCE 357. I have received report from SILVANA Rodriguez and had the opportunity to ask questions and assume patient care.
[2019-01-03] MEDS: donepezil 5mg tablet PO SCH (20:25)
--- NOTE | 2019-01-03 20:45 | NUR ---
after new iv start in right hand by Madelin eBst and meds given to the pt crushed pt transfered to room 357a to Collins Best
[2019-01-03 21:20] VITALS: BP 187/62
[2019-01-04] VITALS: BP 160/54
[2019-01-04] MEDS: LORazepam 1 MG tablet PO PRN (02:59)
[2019-01-04] MEDS: HYDROcodone/acetaminophen 10/325mg tab PO PRN ×2 (03:05→23:32)
[2019-01-04 06:20] LABS: BASOPHILS % (AUTO) 0.5 % (0-1); EOSINOPHILS # (AUTO) 0.4 X10'3 (0-0.9); EOSINOPHILS % (AUTO) 4.9 % (0-6); LYMPHOCYTES # (AUTO) 1.2 X10'3 (1.1-4.8); LYMPHOCYTES % (AUTO) 14.4 % (21-51); MEAN CORPUSCULAR HEMOGLOBIN 30.6 PG (27.0-31.0); MEAN CORPUSCULAR HGB CONC 34.1 g/dL (33.0-36.5); MEAN CORPUSCULAR VOLUME 89.7 FL (78-98); MEAN PLATELET VOLUME 7.5 FL (7.4-10.4); MONOCYTES # (AUTO) 1.1 X10'3 (0-0.9); MONOCYTES % (AUTO) 13.1 % (2-12); NEUTROPHILS # (AUTO) 5.5 X10'3 (1.8-7.7); NEUTROPHILS % (AUTO) 67.1 % (42-75); PLATELET COUNT 281 X10'3 (140-440); RED BLOOD COUNT 3.91 X10'6 (4.70-6.10); RED CELL DISTRIBUTION WIDTH 13.5 % (11.5-14.5); WHITE BLOOD COUNT 8.2 X10'3 (4.5-11.0)
[2019-01-04 06:28] LABS: ANION GAP 9 (8-16); BLOOD UREA NITROGEN 4 MG/DL (7-18); BUN/CREATININE RATIO 5.7 (5.4-32.0); CALCIUM 8.1 MG/DL (8.5-10.1); CHLORIDE 110 MMOL/L (99-107); GLUCOSE 94 MG/DL (70-104); POTASSIUM 3.6 MMOL/L (3.5-5.1); SODIUM 144 MMOL/L (135-145); TOTAL CARBON DIOXIDE 25.5 MMOL/L (24-32); eGFR > 90 ML/MIN
--- NOTE | 2019-01-04 06:34 | NUR ---
Problems reprioritized. Patient report given, questions answered & plan of care reviewed with SILVANA Neff.
--- NOTE | 2019-01-04 06:36 | NUR ---
Patient in room BRYCE 357. I have received report from SILVANA Guadalupe and had the opportunity to ask questions and assume patient care.
[2019-01-04 08:00] VITALS: BP 159/62
[2019-01-04] MEDS: haloperidol 1mg tablet PO SCH (08:00)
[2019-01-04] MEDS: valproate sod 250mg/5ml UD oral syrup PO SCH ×2 (08:00→20:43)
[2019-01-04] MEDS: lactulose 20gm/30ml cup PO SCH ×2 (08:00→20:00)
[2019-01-04] MEDS ORDERED: amox tr/clav. pot 400mg/5ml 100ml suspension PO SCH ×2 (08:30)
[2019-01-04] MEDS: lisinopril 2.5mg tablet PO SCH (09:07)
[2019-01-04] MEDS: atorvastatin 20mg tablet PO SCH (09:07)
[2019-01-04] MEDS: sotalol 80mg tablet PO SCH ×2 (09:07→20:42)
[2019-01-04] MEDS: simethicone 80mg chew tab PO SCH ×4 (09:07→23:32)
[2019-01-04] MEDS: pantoprazole 40mg Tablet.DR PO SCH (09:08)
[2019-01-04] MEDS: calcium carbonate 500mg chew tablet PO SCH ×3 (09:08→20:42)
[2019-01-04] MEDS: tamsulosin 0.4mg capsule PO SCH (09:08)
[2019-01-04] MEDS: aspirin 81mg tab.chew PO SCH (09:08)
[2019-01-04] MEDS: heparin, porcine 5000 units/ml vial SQ SCH ×2 (09:22→20:41)
[2019-01-04] MEDS: normal saline 1000ml 1,000 ML IV SCH (10:47)
[2019-01-04 12:00] VITALS: BP 131/68
[2019-01-04] MEDS: amox tr/clav. pot 400mg/5ml 100ml suspension PO SCH (17:07)
--- NOTE | 2019-01-04 18:15 | NUR ---
Patient in room BRYCE 357. I have received report from Aishwarya PINA and had the opportunity to ask questions and assume patient care.
--- NOTE | 2019-01-04 18:31 | NUR ---
Problems reprioritized. Patient report given, questions answered & plan of care reviewed with SILVANA Martel.
[2019-01-04 20:00] VITALS: BP 124/49
[2019-01-04] MEDS: lactobacillus rhamnosus 10,000 MMU CELLS/CAPSULE PO SCH (20:42)
[2019-01-04] MEDS: donepezil 5mg tablet PO SCH (20:42)
[2019-01-05] VITALS: BP 148/94
--- NOTE | 2019-01-05 06:34 | NUR ---
Problems reprioritized. Patient report given, questions answered & plan of care reviewed with Aishwarya RN.
[2019-01-05 07:00] VITALS: BP 138/46
[2019-01-05] MEDS: sotalol 80mg tablet PO SCH ×2 (07:21→20:20)
[2019-01-05] MEDS: tamsulosin 0.4mg capsule PO SCH (07:21)
[2019-01-05] MEDS: haloperidol 1mg tablet PO PRN ×2 (07:21→22:16)
[2019-01-05] MEDS: aspirin 81mg tab.chew PO SCH (07:24)
[2019-01-05] MEDS: valproate sod 250mg/5ml UD oral syrup PO SCH ×2 (07:24→20:20)
[2019-01-05] MEDS: lactulose 20gm/30ml cup PO SCH ×2 (07:24→20:20)
[2019-01-05] MEDS: heparin, porcine 5000 units/ml vial SQ SCH ×2 (07:26→20:21)
[2019-01-05] MEDS: lisinopril 2.5mg tablet PO SCH (07:26)
[2019-01-05] MEDS: pantoprazole 40mg Tablet.DR PO SCH (07:30)
[2019-01-05] MEDS: atorvastatin 20mg tablet PO SCH (07:37)
[2019-01-05] MEDS: simethicone 80mg chew tab PO SCH ×2 (07:39→15:52)
[2019-01-05] MEDS: calcium carbonate 500mg chew tablet PO SCH ×3 (07:39→20:20)
[2019-01-05] MEDS: lactobacillus rhamnosus 10,000 MMU CELLS/CAPSULE PO SCH ×2 (07:46→20:20)
[2019-01-05] MEDS: amox tr/clav. pot 400mg/5ml 100ml suspension PO SCH ×2 (09:51→20:20)
[2019-01-05 11:30] VITALS: BP 158/75
[2019-01-05] MEDS: HYDROcodone/acetaminophen 10/325mg tab PO PRN (13:36)
[2019-01-05] MEDS: LORazepam 1 MG tablet PO PRN ×2 (15:51→20:22)
--- NOTE | 2019-01-05 18:49 | NUR ---
Problems reprioritized. Patient report given, questions answered & plan of care reviewed with SILVANA Munoz.
[2019-01-05 20:00] VITALS: BP 136/43
[2019-01-05] MEDS: donepezil 5mg tablet PO SCH (20:20)
--- NOTE | 2019-01-05 23:27 | NUR ---
Patient in room BRYCE 357. I have received report from SILVANA Neff and had the opportunity to ask questions and assume patient care.
--- NOTE | 2019-01-05 23:28 | NUR ---
Patient in room BRYCE 357. I have received report from SILVANA Neff and had the opportunity to ask questions and assume patient care.
--- NOTE | 2019-01-05 23:29 | NUR ---
Patient in room [facility]. I have received report from SILVANA Neff and had the opportunity to ask questions and assume patient care. Addendum: 01/05/19 at 2329 by Tammy De Anda RN Amended: Links added.
[2019-01-06] VITALS: BP 127/78
--- NOTE | 2019-01-06 06:26 | NUR ---
Problems reprioritized. Patient report given, questions answered & plan of care reviewed with SILVANA Ricardo. Addendum: 01/06/19 at 0627 by Tammy De Anda RN Amended: Links added.
[2019-01-06 07:00] VITALS: BP 121/77
[2019-01-06] MEDS: valproate sod 250mg/5ml UD oral syrup PO SCH ×2 (07:13→19:36)
[2019-01-06] MEDS: pantoprazole 40mg Tablet.DR PO SCH (07:30)
[2019-01-06] MEDS: aspirin 81mg tab.chew PO SCH (07:32)
[2019-01-06] MEDS: atorvastatin 20mg tablet PO SCH (07:33)
[2019-01-06] MEDS: sotalol 80mg tablet PO SCH ×2 (07:33→19:29)
[2019-01-06] MEDS: tamsulosin 0.4mg capsule PO SCH (07:33)
[2019-01-06] MEDS: simethicone 80mg chew tab PO SCH ×4 (07:33→21:46)
[2019-01-06] MEDS: lactobacillus rhamnosus 10,000 MMU CELLS/CAPSULE PO SCH ×2 (07:33→19:29)
[2019-01-06] MEDS: calcium carbonate 500mg chew tablet PO SCH ×3 (07:33→21:00)
[2019-01-06] MEDS: lactulose 20gm/30ml cup PO SCH ×2 (07:33→20:00)
[2019-01-06] MEDS: lisinopril 2.5mg tablet PO SCH (07:34)
[2019-01-06] MEDS: heparin, porcine 5000 units/ml vial SQ SCH ×2 (07:34→19:35)
[2019-01-06] MEDS: amox tr/clav. pot 400mg/5ml 100ml suspension PO SCH ×2 (08:30→15:54)
[2019-01-06 11:00] VITALS: BP 102/46
[2019-01-06] MEDS ORDERED: haloperidol lactate 5mg/ml inj IM PRN (13:45)
[2019-01-06] MEDS: LORazepam 2 mg/ml vial IV PRN (14:03)
[2019-01-06] MEDS: HYDROcodone/acetaminophen 10/325mg tab PO PRN (15:54)
[2019-01-06] MEDS: haloperidol 1mg tablet PO PRN (15:54)
--- NOTE | 2019-01-06 17:00 | NUR ---
patient restless and agitated only sleeping x2 naps of 30mins. Dr Howard was called and order given for Ativan and Haldol. See EMAR. Patient still restless at times. Family visited and helped patient to tolerate some PO meds. Still requiring sitter.Had refused all meds in AM. DR howard aware.
[2019-01-06 18:00] VITALS: BP 99/75
--- NOTE | 2019-01-06 18:48 | NUR ---
Problems reprioritized. Patient report given, questions answered & plan of care reviewed with lauro PINA.
[2019-01-06] MEDS: LORazepam 1 MG tablet PO PRN (19:29)
[2019-01-06] MEDS: donepezil 5mg tablet PO SCH (19:29)
--- NOTE | 2019-01-06 21:34 | NUR ---
Patient in room [facility]. I have received report from SILVANA Ricardo and had the opportunity to ask questions and assume patient care. Addendum: 01/06/19 at 2135 by Tammy De Anda RN Amended: Links added.
[2019-01-07] VITALS: BP 149/70
--- NOTE | 2019-01-07 05:19 | NUR ---
Notified Dr. Wiley that pt. was made NPO 01/06 d/t not passing a swallow test. Requested IVF, but did not receive order. MD will defer to day .
--- NOTE | 2019-01-07 06:35 | NUR ---
Patient in room [facility]. I have received report from Tammy PINA and had the opportunity to ask questions and assume patient care.
--- NOTE | 2019-01-07 06:41 | NUR ---
Problems reprioritized. Patient report given, questions answered & plan of care reviewed with SILVANA Myers. Addendum: 01/07/19 at 0642 by Tammy De Anda RN Amended: Links added.
[2019-01-07 07:00] VITALS: BP 136/67
[2019-01-07] MEDS: pantoprazole 40mg Tablet.DR PO SCH (07:30)
[2019-01-07] MEDS: calcium carbonate 500mg chew tablet PO SCH ×2 (08:00→13:00)
[2019-01-07] MEDS: valproate sod 250mg/5ml UD oral syrup PO SCH ×2 (08:00→21:00)
[2019-01-07] MEDS: atorvastatin 20mg tablet PO SCH (08:00)
[2019-01-07] MEDS: tamsulosin 0.4mg capsule PO SCH (08:00)
[2019-01-07] MEDS: lactobacillus rhamnosus 10,000 MMU CELLS/CAPSULE PO SCH (08:00)
[2019-01-07] MEDS: aspirin 81mg tab.chew PO SCH (08:00)
[2019-01-07] MEDS: lactulose 20gm/30ml cup PO SCH (08:00)
[2019-01-07] MEDS: lisinopril 2.5mg tablet PO SCH (08:00)
[2019-01-07] MEDS: simethicone 80mg chew tab PO SCH (08:00)
[2019-01-07] MEDS: sotalol 80mg tablet PO SCH (08:00)
[2019-01-07] MEDS: normal saline 1000ml 1,000 ML IV SCH ×2 (08:21→17:08)
[2019-01-07] MEDS: heparin, porcine 5000 units/ml vial SQ SCH ×2 (08:23→20:34)
[2019-01-07] MEDS: amox tr/clav. pot 400mg/5ml 100ml suspension PO SCH (08:30)
[2019-01-07 11:00] VITALS: BP 135/84
--- NOTE | 2019-01-07 11:43 | NUR ---
Reassessment: Pt remains confused and A/O x 1 and is agitated and resistive to care per physical assessment. Pt s/p BSS 01/[address] recs NPO and reassess d/t pt coughing with food and liquids. Pending f/u BSS with ST for possible diet advancement. Pt with low Dain of 12, no documented open wounds at this time. [facility]BM 01/06. Pt waiting for placement per MD notes. Will continue to follow. Rec: 1. Advance to heart healthy diet with texture per SPEEDER MACHINE OPERATOR/MD 2. monitor for ONS needs with diet advancement 3. wt per rx Addendum: 01/07/19 at [address] Amended: Links added.
[2019-01-07] MEDS: LORazepam 2 mg/ml vial IV PRN ×2 (13:00→20:34)
--- NOTE | 2019-01-07 18:22 | NUR ---
Problems reprioritized. Patient report given, questions answered & plan of care reviewed with SILVANA Munoz.
[2019-01-07 20:00] VITALS: BP 166/116
[2019-01-08] VITALS: BP 155/75
[2019-01-08] MEDS: LORazepam 2 mg/ml vial IV PRN ×3 (02:07→18:44)
--- NOTE | 2019-01-08 06:23 | NUR ---
Problems reprioritized. Patient report given, questions answered & plan of care reviewed with SILVANA Myers. Addendum: 01/08/19 at 0624 by Tammy De Anda RN Amended: Links added.
--- NOTE | 2019-01-08 06:41 | NUR ---
Patient in room [facility]. I have received report from SILVANA BREEN and had the opportunity to ask questions and assume patient care.
[2019-01-08 07:00] VITALS: BP 171/65
[2019-01-08] MEDS: valproate sod 250mg/5ml UD oral syrup PO SCH ×2 (08:00→20:18)
[2019-01-08 08:23] VITALS: BP 127/58
[2019-01-08] MEDS: heparin, porcine 5000 units/ml vial SQ SCH ×2 (09:06→20:24)
[2019-01-08] MEDS: normal saline 1000ml 1,000 ML IV SCH ×2 (10:55→18:46)
[2019-01-08 11:00] VITALS: BP 155/69
--- NOTE | 2019-01-08 18:35 | NUR ---
Patient in room [facility]. I have received report from SILVANA Rivera and had the opportunity to ask questions and assume patient care. Addendum: 01/08/19 at 1835 by Ashlie Werner RN Amended: Links added.
--- NOTE | 2019-01-08 18:36 | NUR ---
Problems reprioritized. Patient report given, questions answered & plan of care reviewed with SILVANA Kenny.
[2019-01-08 19:00] VITALS: BP 137/92
[2019-01-09] VITALS: BP 162/65
[2019-01-09] MEDS: LORazepam 2 mg/ml vial IV PRN ×3 (01:30→23:21)
--- NOTE | 2019-01-09 06:33 | NUR ---
Problems reprioritized. Patient report given, questions answered & plan of care reviewed with SILVANA Alvarez.
[2019-01-09 07:00] VITALS: BP 179/61
[2019-01-09] MEDS: valproate sod 250mg/5ml UD oral syrup PO SCH ×2 (07:34→21:00)
[2019-01-09] MEDS: heparin, porcine 5000 units/ml vial SQ SCH ×2 (07:37→20:09)
[2019-01-09] MEDS: normal saline 1000ml 1,000 ML IV SCH (07:44)
[2019-01-09 12:18] VITALS: BP 129/53
[2019-01-09 18:00] VITALS: BP 136/63
--- NOTE | 2019-01-09 18:19 | NUR ---
Problems reprioritized. Patient report given, questions answered & plan of care reviewed with HE Levin RN.
--- NOTE | 2019-01-09 18:31 | NUR ---
Patient in room [facility]. I have received report from SILVANA Alvarez and had the opportunity to ask questions and assume patient care. Addendum: 01/09/19 at 1831 by Ashlie Werner RN Amended: Links added.
[2019-01-10] VITALS: BP 169/61
[2019-01-10] MEDS: normal saline 1000ml 1,000 ML IV SCH ×2 (00:07→20:27)
--- NOTE | 2019-01-10 06:00 | NUR ---
Patient in room [facility]. I have received report from HE Levin RN and had the opportunity to ask questions and assume patient care.
--- NOTE | 2019-01-10 06:21 | NUR ---
Problems reprioritized. Patient report given, questions answered & plan of care reviewed with SILVANA Oconnell. Addendum: 01/10/19 at 0622 by Ashlie Werner RN Amended: Links added.
[2019-01-10 07:04] VITALS: BP 186/62
--- NOTE | 2019-01-10 07:30 | NUR ---
I RECEIVED THIS PT AT 0600 THIS MORNING. HIS EMAR STATES HE HAS NOT BEEN ON HIS DEPAKOTE FOR 4 DAYS. IM ASSUMING BECAUSE HE HAS FAILED A SWALLOW STUDY. PAGED DR GARSIA TO SEE IF WE CAN SWITCH THIS TO IV DEPAKOTE. WAITING HER RESPONSE
--- NOTE | 2019-01-10 07:47 | NUR ---
PER DR GARSIA. DO NOT START DEPAKOTE IV
[2019-01-10] MEDS: valproate sod 250mg/5ml UD oral syrup PO SCH ×2 (08:00→21:00)
[2019-01-10] MEDS: heparin, porcine 5000 units/ml vial SQ SCH ×2 (08:22→20:26)
--- NOTE | 2019-01-10 08:24 | NUR ---
PT NAME BAND IS MISSING. HE WAS ABLE TO IDENTIFY HIMSELF BY TELLING ME HIS FIRST NAME, LAST NAME, AND DATE OF . I ALSO ASKED THE PT TO SPELL HIS LAST NAME. HE DID SO WITH EASE. GAVE HEPARIN PER DR ORDER AFTER IDENTIFYING PT APPROPRIATELY. ASKED PACKER AND CARRY OUT TO RUN DOWN STAIRS TO GET A NEW IDENTITY BAND.
--- NOTE | 2019-01-10 08:27 | NUR ---
PER SPEECH THERAPIST, PT TO STAY NPO, POSSIBLE COR BHARTI AND TUBE FEED FOR NUTRITION. WILL DISCUSS WITH DR GARSIA WHEN SHE ROUNDS.
[2019-01-10 11:00] VITALS: BP 167/46
[2019-01-10 18:00] VITALS: BP 190/72
--- NOTE | 2019-01-10 18:21 | NUR ---
GAVE REPORT TO HE Levin RN
--- NOTE | 2019-01-10 18:24 | NUR ---
Patient in room [facility]. I have received report from SILVANA Cruz and had the opportunity to ask questions and assume patient care. Addendum: 01/10/19 at 1825 by Ashlie Werner RN Amended: Links added.
[2019-01-10] MEDS ORDERED: morphine 2 MG/ML inj. syringe IV PRN (20:10)
[2019-01-10] MEDS: morphine 2 MG/ML inj. syringe IV PRN (20:26)
[2019-01-10] MEDS: LORazepam 2 mg/ml vial IV PRN (23:03)
[2019-01-10 23:15] VITALS: BP 159/58
[2019-01-11] MEDS: morphine 2 MG/ML inj. syringe IV PRN ×5 (01:19→23:29)
[2019-01-11] MEDS: LORazepam 2 mg/ml vial IV PRN ×5 (05:27→23:29)
[2019-01-11] MEDS: normal saline 1000ml 1,000 ML IV SCH ×2 (05:35→20:41)
--- NOTE | 2019-01-11 05:46 | NUR ---
Patient appears to be more coherent and verbalizes concerns at the beginning of this shift. noted that MD ordered on comfort care measures but no medications on order. Patient was c/o severe pain to his head and back pain as well on the scale of 8/10. Called Dr. Wiley and ordered morphine for pain which was given with some relief and still c/o headache. Around 4am patient noticed having confusion, not able to comprehend and starting to crawl out in bed again and another dose of ativan given. Patient at rest right now with sitter.
--- NOTE | 2019-01-11 06:05 | NUR ---
Problems reprioritized. Patient report given, questions answered & plan of care reviewed with SILVANA Cruz. Addendum: 01/11/19 at 0605 by Ashlie Werner RN Amended: Links added.
[2019-01-11 07:00] VITALS: BP 185/79
--- NOTE | 2019-01-11 07:18 | NUR ---
Patient in room [facility]. I have received report from HE Levin RN and had the opportunity to ask questions and assume patient care.
[2019-01-11] MEDS: heparin, porcine 5000 units/ml vial SQ SCH ×2 (08:00→20:00)
[2019-01-11] MEDS: hydrALAZINE 20mg/ml inj. IV PRN (09:02)
[2019-01-11 11:00] VITALS: BP 150/50
--- NOTE | 2019-01-11 17:44 | NUR ---
Problems reprioritized. Patient report given, questions answered & plan of care reviewed with JENNIFER PINA.
[2019-01-11 18:00] VITALS: BP 158/50
--- NOTE | 2019-01-11 18:40 | NUR ---
Patient in room [facility]. I have received report from SILVANA Cruz and had the opportunity to ask questions and assume patient care.
[2019-01-12] VITALS: BP 185/79
[2019-01-12] MEDS: LORazepam 2 mg/ml vial IV PRN ×4 (00:47→19:25)
[2019-01-12] MEDS: morphine 2 MG/ML inj. syringe IV PRN ×3 (02:17→19:28)
[2019-01-12 03:58] VITALS: BP 147/57
--- NOTE | 2019-01-12 06:18 | NUR ---
Problems reprioritized. Patient report given, questions answered & plan of care reviewed with SILVANA Adair.
[2019-01-12] MEDS: heparin, porcine 5000 units/ml vial SQ SCH ×2 (08:00→19:16)
[2019-01-12] MEDS: normal saline 1000ml 1,000 ML IV SCH ×2 (09:01→21:49)
[2019-01-12 18:00] VITALS: BP 189/83
--- NOTE | 2019-01-12 18:48 | NUR ---
Patient in room [facility]. I have received report from SILVANA Adair and had the opportunity to ask questions and assume patient care.
[2019-01-12] MEDS: hydrALAZINE 20mg/ml inj. IV PRN (19:22)
[2019-01-12 20:00] VITALS: BP 176/52
[2019-01-13] VITALS: BP 179/60
[2019-01-13] MEDS: LORazepam 2 mg/ml vial IV PRN ×6 (00:23→22:03)
[2019-01-13] MEDS: morphine 2 MG/ML inj. syringe IV PRN ×5 (00:26→17:50)
--- NOTE | 2019-01-13 06:20 | NUR ---
Problems reprioritized. Patient report given, questions answered & plan of care reviewed with SILVANA Casey.
--- NOTE | 2019-01-13 07:08 | NUR ---
Patient in room [facility]. I have received report from Lucila PINA and had the opportunity to ask questions and assume patient care.
[2019-01-13] MEDS: normal saline 1000ml 1,000 ML IV SCH ×2 (08:32→23:12)
[2019-01-13] MEDS: heparin, porcine 5000 units/ml vial SQ SCH (08:33)
[2019-01-13 08:58] VITALS: BP 151/78
--- NOTE | 2019-01-13 15:34 | NUR ---
Pt has been made DNR w/ comfort care. [facility] 01/07; remains NPO. Will continue to monitor per protocol. Rec: 1. bowel care if constipation Addendum: 01/13/19 at [address] Amended: Links added.
[2019-01-13] MEDS ORDERED: magnesium hydroxide 30ml (MOM) UD suspension PO PRN (18:30)
--- NOTE | 2019-01-13 18:44 | NUR ---
Problems reprioritized. Patient report given, questions answered & plan of care reviewed with Pat RN.
[2019-01-13 19:30] VITALS: BP 105/45
[2019-01-14] MEDS: LORazepam 2 mg/ml vial IV PRN ×4 (02:01→22:27)
--- NOTE | 2019-01-14 06:36 | NUR ---
Patient in room [facility]. I have received report from Pat RN and had the opportunity to ask questions and assume patient care.
[2019-01-14] MEDS: morphine 2 MG/ML inj. syringe IV PRN ×2 (06:46→16:38)
[2019-01-14 07:00] VITALS: BP 140/48
--- NOTE | 2019-01-14 07:50 | NUR ---
Tried to do oral care this morning but patient bites on anything you place in mouth and won't let go easily .
[2019-01-14] MEDS: normal saline 1000ml 1,000 ML IV SCH (11:21)
--- NOTE | 2019-01-14 18:28 | NUR ---
Problems reprioritized. Patient report given, questions answered & plan of care reviewed with Yvette PINA.
[2019-01-14 19:00] VITALS: BP 123/43
[2019-01-15] MEDS: morphine 2 MG/ML inj. syringe IV PRN ×5 (01:11→21:59)
[2019-01-15] MEDS: normal saline 1000ml 1,000 ML IV SCH ×2 (02:55→14:28)
[2019-01-15] MEDS: LORazepam 2 mg/ml vial IV PRN ×3 (06:35→18:46)
--- NOTE | 2019-01-15 07:27 | NUR ---
Patient in room [facility]. I have received report from Yvette PINA and had the opportunity to ask questions and assume patient care.
[2019-01-15 07:32] VITALS: BP 136/41
--- NOTE | 2019-01-15 10:40 | NUR ---
Pt with low Dain of 10. Per [facility] notes 01/13 skin intact with no signs of pressure noted. No nutrition intervention warranted at this time. Pt continues DNR with comfort care measures. [facility] 01/14. Will continue to follow. Addendum: 01/15/19 at [address] Amended: Links added.
[2019-01-15] MEDS: moxifloxacin 0.5% ophthalmic drops 3ml EACHEYE SCH ×2 (14:52→21:52)
--- NOTE | 2019-01-15 18:49 | NUR ---
Problems reprioritized. Patient report given, questions answered & plan of care reviewed with Yvette PINA.
[2019-01-15 20:00] VITALS: BP 181/54
[2019-01-16] MEDS: LORazepam 2 mg/ml vial IV PRN ×3 (00:53→13:09)
[2019-01-16] MEDS: normal saline 1000ml 1,000 ML IV SCH (04:15)
--- NOTE | 2019-01-16 06:40 | NUR ---
Patient in room [facility]. I have received report from Yvette PINA and had the opportunity to ask questions and assume patient care.
[2019-01-16 07:00] VITALS: BP 118/82
[2019-01-16] MEDS: morphine 2 MG/ML inj. syringe IV PRN ×2 (07:32→09:55)
[2019-01-16] MEDS: moxifloxacin 0.5% ophthalmic drops 3ml EACHEYE SCH (08:17)
--- NOTE | 2019-01-16 13:24 | NUR ---
Patient was discharged to an [facility]. Report called to the facility, spoke to Fina the Supervisor Composing Room. Ativan IV given prior to discharge. Peripheral IV catheter removed, tip intact. Discharge folder sent with patient including his belongings.
== END 2019-01-16 13:24 | disposition hospice, inpatient (51) | DRG 441 ==
LOC: ER 15:50 → PCU 3S 12-30 14:31 → CMPBEDREQ 12-30 21:00 → SUR 3N 01-03 20:52
PROVIDERS: ADMIT Family Medicine; ATTEND Family Medicine
DX: K72.90 Hepatic failure, unspecified without coma (principal); G92 Toxic encephalopathy; J69.0 Pneumonitis due to inhalation of food and vomit; F23 Brief psychotic disorder; T50.905A Adverse effect of unspecified drugs, medicaments and biological substances, initial encounter; I10 Essential (primary) hypertension; F03.90 Unspecified dementia, unspecified severity, without behavioral disturbance, psychotic disturbance, mood disturbance, and anxiety; R29.818 Other symptoms and signs involving the nervous system; Z66 Do not resuscitate; Z51.5 Encounter for palliative care; Z78.1 Physical restraint status; Z86.73 Personal history of transient ischemic attack (TIA), and cerebral infarction without residual deficits; Z79.82 Long term (current) use of aspirin; Z79.899 Other long term (current) drug therapy; Y92.89 Other specified places as the place of occurrence of the external cause
CPT/HCPCS: 36415; 70450; 71045; 80048; 80053; 80305; 80320; 81003; 82140; 82948; 85025; 87081; 92508; 92616; 93005; 96361; 96372; 96374; 97116; 97161; 97530; 97535; 99285; G0378; J0360; J1200; J1630; J1644; J2060; J2270; J7030; J7040